=== PATIENT | female | born 1975 | race Caucasian/White ===

== ENCOUNTER 2020-09-08 16:41 | Emergency (ER) | payer OTHER ==
[~2020-09-08] VITALS: Ht 180.3 cm; Wt 75.1 kg
[2020-09-08 16:57] VITALS: BP 108/70
[2020-09-08] MEDS ORDERED: ACETAMINOPHEN 500 MG TABLET PO ONE (17:00)
[2020-09-08] MEDS ORDERED: DEXAMETHASONE SOD PHOS 10 MG/ML VIAL. PO ONE (17:00)
--- NOTE | 2020-09-08 17:22 | RAD ---
AP chest. HISTORY: Cough AP view was taken of the chest. There is no pneumothorax or pleural effusion. Heart is normal in size . Lungs are clear. IMPRESSION: 1. No acute chest disease. Electronically signed by: Cheng Noble MD (09/08/2020 5:20 PM) [facility]
[2020-09-08] MEDS ORDERED: MORPHINE SULFATE 4 MG/ML DISP.SYRIN. ONE (17:45)
[2020-09-08] MEDS ORDERED: ONDANSETRON PF 4 MG/2 ML VIAL. IVP ONE (17:45)
[2020-09-08] MEDS ORDERED: GUAI120L35 PO (17:57)
[2020-09-08] MEDS ORDERED: ONDA4TAB7 PO (17:57)
--- NOTE | 2020-09-08 17:59 | PHYS DOC ---
Past History Past Surgical History: No Surgical History (ANTOINETTE GODOY APRN) General Adult EDM: Chief Complaint: FEVER HPI: HPI: Patient is a 45-year-old female who presents with fever, cough. Patient was diagnosed with Covid 1 week ago. Patient states that she is been running 102 fever every single day. Patient's been taking ibuprofen and Tylenol. Patient is also reporting some nausea. (ANTOINETTE GODOY APRN) Review of Systems: Review of Systems: Constitutional: Reports fever and chills Eyes: Denies change in visual acuity HENT: Denies nasal congestion or sore throat Respiratory: Reports cough and shortness of breath Cardiovascular: Denies chest pain or edema GI: Denies abdominal pain, nausea, vomiting, bloody stools or diarrhea : Denies dysuria Musculoskeletal: Denies back pain or joint pain Integument: Denies rash Neurologic: Denies headache, focal weakness or sensory changes Endocrine: Denies polyuria or polydipsia Lymphatic: Denies swollen glands Psychiatric: Denies depression or anxiety (ANTOINETTE GODOY APRN) Current Medications: Current Meds: Current Medications Medications (Trade) Dose Ordered Sig/Caren Start Time Stop Time Status Last Admin Dose Admin Acetaminophen (Tylenol) 1,000 mg 1X ONCE 09/08/20 17:00 09/08/20 17:28 DC 09/08/20 17:13 1,000 MG Dexamethasone Sodium Phosphate (Decadron) 10 mg 1X ONCE 09/08/20 17:00 09/08/20 17:28 DC 09/08/20 17:13 10 MG (ANTOINETTE GODOY APRN) Allergies: Allergies: Allergies Coded Allergies Type Severity Reaction Last Updated Verified azithromycin Allergy Unknown 09/08/20 Yes (ANTOINETTE GODOY APRN) Physical Exam: PE: Constitutional: Well developed, well nourished, no acute distress, non-toxic appearance. [] HENT: Normocephalic, atraumatic, bilateral external ears normal, oropharynx moist, no oral exudates, nose normal. [] Eyes: PERRLA, EOMI, conjunctiva normal, no discharge. [] Neck: Normal range of motion, no tenderness, supple, no stridor. [] Cardiovascular:Heart rate regular rhythm, no murmur [] Lungs & Thorax: Bilateral breath sounds clear to auscultation [] Abdomen: Bowel sounds normal, soft, no tenderness, no masses, no pulsatile masses. [] Skin: Warm, dry, no erythema, no rash. [] Back: No tenderness, no CVA tenderness. [] Extremities: No tenderness, no cyanosis, no clubbing, ROM intact, no edema. [] Neurologic: Alert and oriented X 3, normal motor function, normal sensory function, no focal deficits noted. [] Psychologic: Affect normal, judgement normal, mood normal. [] (ANTOINETTE GODOY APRN) Current Patient Data: Vital Signs: Vital Signs Date Time Temp Pulse Resp B/P (MAP) Pulse Ox O2 Delivery O2 Flow Rate FiO2 09/08/20 16:57 99.5 114 20 108/70 97 (ANTOINETTE GODOY APRN) EKG: EKG: [] (ANTOINETTE GODOY APRN) Radiology/Procedures: Radiology/Procedures: [] (ANTOINETTE GODOY APRN) Heart Score: C/O Chest Pain: No Risk Factors: Risk Factors: DM, Current or recent (<one month) smoker, HTN, HLP, family history of CAD, obesity. Risk Scores: Score 0 - 3: 2.5% MACE over next 6 weeks - Discharge Home Score 4 - 6: 20.3% MACE over next 6 weeks - Admit for Clinical Observation Score 7 - 10: 72.7% MACE over next 6 weeks - Early Invasive Strategies (ANTOINETTE GODOY APRN) Course & Med Decision Making: Course & Med Decision Making Pertinent Labs and Imaging studies reviewed. (See chart for details) [] 45-year-old female presents with fever and cough. Patient had positive Covid test 1 week ago. Patient's been taking Tylenol and ibuprofen at home. Chest x-ray was unremarkable. Patient given 10 mg, dexamethasone, albuterol inhaler, 1 g of Tylenol, 4 mg morphine. Patient most likely is suffering with pleurisy from cough/Covid..Discussed results with patient. Patient was acting unhappy. When asked patient what she was upset about. Patient states that she is disappointed because I am not making her feel better. Explained to patient that she was hemodynamically stable, her chest x-ray was unremarkable, and that I was giving her dedication she needed to treat symptoms. Discussed [id number] medications to help with symptoms. Discussed importance alternating between ibuprofen and Tylenol. Explained to patient that the cough may linger for a while. Sent patient home with cough medicine with codeine. Advised patient to purchase a pulse ox to monitor her oxygen level. Discussed ibuprofen and Tylenol dosage, and max daily amounts. Advised patient to call PCP and make a follow-up appointment. Patient is hemodynamically stable upon discharge. (ANTOINETTE GODOY APRN) Course & Med Decision Making Did not see or evaluate patient. Agree with plan of work-up and disposition per note (DANIEL JOHN MD) [place] Disclaimer: Jose Disclaimer: This electronic medical record was generated, in whole or in part, using a voice recognition dictation system. (ANTOINETTE GODOY APRN) Departure Departure: Impression: Primary Impression: COVID Additional Impression: Pleurisy Disposition: HOME / SELF CARE / HOMELESS Condition: STABLE Referrals: PCP,UNKNOWN (PCP) Patient Instructions: Cough, Adult, [id number] Additional Instructions: You were seen in the emergency room for Covid symptoms. Make sure that you are treating your fever and chills at home with ibuprofen and Tylenol. You can take ibuprofen 600 mg every 6 hours. You can take Tylenol (acetaminophen) 650 mg every 4-6 hours. Also giving you an albuterol inhaler to use as needed for shortness of breath. You received 1 g of Tylenol while you were in the emergency room. You also received 10 mg of dexamethasone while you are here which is a steroid. Continue using your pulse ox at home to monitor your oxygen level. I am also sending you home with cough medicine that contains codeine which will help with your cough and sleep. You also requested Zofran for nausea. If symptoms continue please follow-up with your PCP. Return to the emergency room if you have worsening symptoms or concerns. EMERGENCY DEPARTMENT GENERAL DISCHARGE INSTRUCTIONS Thank you for coming to [facility] (ED) today and trusting us with you care. We trust that you had a positivie experience in our Emergency Department. If you wish to speak to the department management, you may call the director at [phone]. YOUR FOLLOW UP INSTRUCTIONS ARE FOLLOWS: 1. Do you have a private Doctor? If you do not have a private doctor, please ask for a resource list of physicians or clinics that may be able to assist you with follow up care. 2. The Emergency Physician has interpreted your x-rays. The X-Ray specialist will also review them. If there is a change in the findings, you will be notified in 48 h ours when at all possible. 3. A lab test or culture has been done, your results will be reviewed and you will be notified if you need a change in treatment. ADDITIONAL INSTRUCTIONS AND INFORMATION: 1. Your care today has been supervised by a physician who is specially trained in emergency care. Many problems require more than one evaluation for a complete diagnosis and treatment. We recommend that you schedule your follow up appointment as recommended to ensure complete treatment of you illness or injury. If you are unable to obtain follow up care and continue to have a problem, or if your condition worsens, we recommend that you return to the ED. 2. We are not able to safely determine your condition over the phone nor are we able to give sound medical advice over the phone. For these safety reasons, if you call for medical advice we will ask you to come to the ED for further evaluation. 3. If you have any questions regarding these discharge instructions please call the ED at [phone]. SAFETY INFORMATION: In the interest of safety, wellness, and injury prevention; we encourage you to wear your sealbelt, if you smoke; quite smoking, and we encourage family to use a protective helmet for bicycling and other sporting events that present an increased risk for head injury. IF YOUR SYMPTOMS WORSEN OR NEW SYMPTOMS DEVELOP, OR YOU HAVE CONCERNS ABOUT YOUR CONDITION; OR IF YOUR CONDITION WORSENS WHILE YOU ARE WAITING FOR YOUR FOLLOW UP APPOINTMENT; EITHER CONTACT YOUR PRIMARY CARE DOCTOR, THE PHYSICIAN WHOSE NAME AND NUMBER YOU WERE GIVEN, OR RETURN TO THE ED IMMEDIATELY. Scripts Guaifenesin/Codeine Phosphate (Codeine-Guaifen 10-100 mg/5 ml) 120 Ml Liquid 5 ML PO PRN Q6HRS PRN for cough and congestion MDD 20 Milliliter(s) for 6 Days, #120 ML 0 Refills Prov: ANTOINETTE GODOY APRN 09/08/20 Ondansetron Hcl (ZOFRAN) 4 Mg Tablet 4 MG PO TID PRN PRN for NAUSEA for 10 Days, #30 TAB Prov: ANTOINETTE GODOY APRN 09/08/20 ANTOINETTE GODOY APRN Sep 08, 2020 17:58 DANIEL JOHN MD Sep 09, 2020 19:36
[2020-09-08] MEDS ORDERED: ONDANSETRON ODT 4 MG TAB.RAPDIS PO ONE (18:15)
[2020-09-08] MEDS ORDERED: MORPHINE SULFATE 4 MG/ML DISP.SYRIN. IV ONE (18:15)
[2020-09-08] MEDS ORDERED: ALBUTEROL SULFATE 8GM INHALER. INH ONE (18:15)
[2020-09-08] MEDS ORDERED: MORPHINE SULFATE 4 MG/ML DISP.SYRIN. IM ONE (18:15)
== END 2020-09-08 18:00 | disposition home or self-care (01) ==
LOC: ER 16:41
DX: U07.1 COVID-19 (principal); R09.1 Pleurisy; Z88.1 Allergy status to other antibiotic agents
CPT/HCPCS: 71045; 99284; J1100; Q0162; J2270